=== PATIENT | male | born 1975 | race African-American/Black ===

== ENCOUNTER 2017-02-18 15:16 | Emergency (ER) | payer OTHER ==
[~2017-02-18] VITALS: Ht 190.5 cm; Wt 90.7 kg
[~2017-02-18 15:16] MED LIST: LANS30CA54 PO
[2017-02-18 17:22] VITALS: BP 123/81
--- NOTE | 2017-02-18 17:22 | NUR ---
Patient discharged to home in stable conditon. Written and verbal after care instructions given. Patient verbalizes understanding of instructions.pt walks in steady gait.
== END 2017-02-18 17:23 | disposition home or self-care (01) ==
LOC: ER 15:16
DX: M54.5 Low back pain (principal)
CPT/HCPCS: 99283; A4663

== ENCOUNTER 2017-06-02 04:56 | Emergency (ER) | payer OTHER ==
[~2017-06-02] VITALS: Ht 190.5 cm; Wt 90.7 kg
[2017-06-02] MEDS ORDERED: HYDROCODONE-ACETAMIN 10-325 MG (05:17)
[2017-06-02] MEDS ORDERED: GABAPENTIN 300 MG CAPSULE (05:17)
[2017-06-02] MEDS ORDERED: CYCLOBENZAPRINE 10 MG TABLET (05:17)
[2017-06-02] MEDS ORDERED: OMEPRAZOLE DR 40 MG CAPSULE (05:17)
[2017-06-02] MEDS ORDERED: IBUPROFEN 800 MG TABLET (05:17)
--- NOTE | 2017-06-02 05:21 | NUR ---
PT C/O RT LOWER LEG PAIN X 2WKS WORSE TONIGHT AFTER MASSAGE CALF AND SWELLING AND BRUISING INCREASED AND PAIN
[2017-06-02] MEDS ORDERED: HYDROCODONE/APAP 5-325MG TABLET PO ONE (05:30)
--- NOTE | 2017-06-02 05:34 | NUR ---
pt sts norco is not strong enough. Sts "they usually give me morphine or something. Because norco doesnt work. They've tried steroids and those dont work." Dr. Monsalve notified, awaiting further orders.
--- NOTE | 2017-06-02 05:39 | NUR ---
DR SHERMAN TO EXAM PT AND TALK TO HIM ABOUT PAIN MEDS AND HIS REFUSAL TO TAKE NORCO FOR HIS LEG PAIN
--- NOTE | 2017-06-02 06:11 | NUR ---
PT GIVEN NORCO PO ORDERED
--- NOTE | 2017-06-02 06:12 | NUR ---
US ON RT LOWER EXTREMITY NOW
[2017-06-02] MEDS ORDERED: HYDROCODONE/APAP 10-325 MG TABLET PO ONE (06:15)
[2017-06-02] MEDS ORDERED: HYDROCODONE/APAP 10-325 MG TABLET ONE (06:23)
--- NOTE | 2017-06-02 06:39 | NUR ---
US DONE AND DR SHERMAN AWARE OF RESULTS
[2017-06-02 06:40] VITALS: BP 122/66
== END 2017-06-02 06:42 | disposition home or self-care (01) ==
LOC: ER 04:59
DX: S39.012A Strain of muscle, fascia and tendon of lower back, initial encounter (principal); M54.30 Sciatica, unspecified side; X58.XXXA Exposure to other specified factors, initial encounter; Y93.89 Activity, other specified; Y92.89 Other specified places as the place of occurrence of the external cause; Y99.8 Other external cause status
CPT/HCPCS: 93971; 99284; A4663

== ENCOUNTER 2020-01-19 01:29 | Emergency (ER) | payer OTHER ==
[~2020-01-19] VITALS: Ht 190.5 cm; Wt 90.7 kg
[~2020-01-19 01:29] MED LIST changes: +CYCLOBENZAPRINE 10 MG TABLET; +GABAPENTIN 300 MG CAPSULE; +HYDROCODONE-ACETAMIN 10-325 MG; +IBUPROFEN 800 MG TABLET; -LANS30CA54 PO; +OMEPRAZOLE DR 40 MG CAPSULE
--- NOTE | 2020-01-19 01:44 | NUR ---
Dr. Anderson at bedside for MSE
--- NOTE | 2020-01-19 01:55 | NUR ---
covid swab taken and sent to lab at this time
[2020-01-19] MEDS ORDERED: IV NORMAL SALINE 1000 ML BAG IV ONE (02:00)
[2020-01-19 02:19] LABS: BASOPHILS % (AUTO) 0.2 % (0.0-2.0); CREATININE 1.6 mg/dL (0.6-1.3); EOSINOPHILS % (AUTO) 0.9 % (0.0-7.0); HEMATOCRIT 46.3 % (36.7-47.1); HEMOGLOBIN 15.9 g/dL (12.5-16.3); LYMPHOCYTES # (AUTO) 0.8 K/uL (20.0-40.0); LYMPHOCYTES % (AUTO) 18.5 % (20.5-51.5); MEAN CORPUSCULAR HEMOGLOBIN 31.2 uug (23.8-33.4); MEAN CORPUSCULAR HGB CONC 34 g/dL (32.5-36.3); MEAN CORPUSCULAR VOLUME 90.9 fL (73.0-96.2); MONOCYTES # (AUTO) 0.5 K/uL (2.0-10.0); MONOCYTES % (AUTO) 10.5 % (0.0-11.0); NEUTROPHILS % (AUTO) 69.9 % (38.5-71.5); PLATELET COUNT (AUTO) 264 K/uL (152-348); POTASSIUM 4.1 mmol/L (3.5-5.1); WHITE BLOOD COUNT (AUTO) 4.3 K/uL (3.6-10.2)
[2020-01-19 02:25] LABS: BILIRUBIN,DIRECT 0.2 mg/dL (0.0-0.2); BILIRUBIN,TOTAL 0.7 mg/dL (0.2-1.0); TOTAL PROTEIN, SERUM 8.6 g/dL (6.4-8.2)
[2020-01-19] MEDS ORDERED: AZITHROMYCIN IV 500 MG in IV DEXTROSE 5% 250 ML IV ONE (02:45)
[2020-01-19] MEDS ORDERED: COLCHICINE 0.6 MG TABLET PO ONE (02:45)
[2020-01-19] MEDS ORDERED: COLCHICINE 0.6 MG TABLET ONE (02:46)
[2020-01-19] MEDS ORDERED: AZITHROMYCIN 500MG/ D5W 250ML IVPB **ER PYXIS ONLY IV ONE (02:46)
--- NOTE | 2020-01-19 02:56 | NUR ---
zithromax IV running at this time
--- NOTE | 2020-01-19 04:05 | NUR ---
Patient discharged to home in stable condition. friend picked patient up from ER. no signs of distress noted, no complaints of pain. no fever noted on discharge. Written and verbal after care instructions given. Rx given. All belongings with patient. Patient verbalizes understanding of instructions. Stressed follow up or return to ER for worsening s/s. Addendum: 01/19/20 at 0412 by FREDY patient ambulatory
[2020-01-19 04:07] VITALS: BP 106/79
== END 2020-01-19 04:13 | disposition home or self-care (01) ==
LOC: ER 01:30
DX: U07.1 COVID-19 (principal); J06.9 Acute upper respiratory infection, unspecified; M10.9 Gout, unspecified
CPT/HCPCS: 36415; 71045; 80048; 80076; 85025; 96361; 96365; 99284; J0456; U0003; A4663; J7030